=== PATIENT | female | born 1960 | race Caucasian/White ===

== ENCOUNTER 2018-07-27 13:39 | Outpatient (CLI) | payer MEDICAID | END 2018-07-27 23:59 | disposition home or self-care (01) | LOC: LAB 13:39 → RAD 23:59 | PROVIDERS: ATTEND Physician Assistant | DX: J98.11 Atelectasis (principal); R06.02 Shortness of breath; Z87.891 Personal history of nicotine dependence | CPT/HCPCS: 71046 ==